=== PATIENT | female | born 1955 | race Caucasian/White ===

== ENCOUNTER 2021-02-10 09:48 | Outpatient (CLI) | payer MEDICARE, SELFPAY ==
--- NOTE | ~2021-02-10 | MR_ITS ---
EXAMINATION: MR brain/brain stem wo/w con DATE: 02/10/2021 11:08 INDICATION: Other abnormalities of gait and mobility. TECHNIQUE: Magnetic resonance imaging (MRI) of the brain and brainstem was performed without and with 20 mL MultiHance intravenous contrast. Sequences included sagittal and axial T1-weighted FSE, axial diffusion-weighted FS EPI, axial T2*-weighted GRE, axial T2-weighted FLAIR Propeller, and axial T2-we ighted Propeller. Postcontrast sequences included axial and coronal T1-weighted FSE. Apparent diffusi on coefficient (ADC) maps were created. COMPARISON: None. FINDINGS: There are scattered areas of nonspecific increased T2-weighted signal intensity in the cere bral white matter, which is within normal limits for the patient's age. There is no intracranial hemo rrhage, acute infarction, or abnormal intracranial mass lesion. The ventricles are normal in size. Th e paranasal sinuses are clear. There are likely changes of ocular lens replacement surgeries. There i s a trace left mastoid effusion. IMPRESSION: 1. Normal aging brain. Reviewed, dictated and finalized at location A. T RELATIONS AGENT IMPRESSION: 1. Normal aging brain.
== END 2021-02-10 09:49 | disposition home or self-care (01) ==
PROVIDERS: PCP Family Medicine; Visit Provider Family Medicine
DX: R26.89 Other abnormalities of gait and mobility (principal)
CPT/HCPCS: 70553; A9577

== ENCOUNTER → 2021-06-12 11:02 | Outpatient (CLI) | payer MEDICARE, SELFPAY ==
--- NOTE | ~2021-06-12 | DEXA_ITS ---
Bone Density Report Name: ANNI LEO Age: 65 Sex: Female Ethnicity: White Date of : 1955 Indication: postmenopausal; screening for osteoporosis; Referring Provider: AFRICA FLORES Study: Bone densitometry was performed. Exam Date: June 12, 2021 Accession number: [id number] Bone Density: Region BMD T-score Z-score Classification AP Spine (L1-L4) 1.620 5.2 7.0 Normal Femoral Neck (Left) 1.269 3.8 5.3 Normal Total Hip (Left) 1.292 2.9 4.1 Normal Femoral Neck (Right) 1.176 2.9 4.5 Normal Total Hip (Right) 1.165 1.8 3.1 Normal Total Hip Mean 1.229 2.4 3.6 Normal World Health Organization criteria for BMD impression classify patients as: Normal (T-score at or above -1.0), Osteopenia (T-score between -1.0 and -2.5), or Osteoporosis (T-score at or below -2.5). 10-year Fracture Risk: FRAX not reported because: All T-scores for Spine Total, Hip Total, Femoral Neck at or above -1.0 Clinical Information Provided by Patient: Patient maximum height was 62 Menopause Age: 45 No regular weight bearing exercise Does not regularly consume dairy products Drinks caffeinated beverages Onset of menses at age 15 Number of children 2 Impression: The patient has normal bone mass. Discussion: LOW RISK OF FRACTURE; BONE DENSITY IS WELL ABOVE THE MINIMUM DESIRABLE LEVEL AND ABOVE AVERAGE FOR AGE AND SEX AT ALL SKELETAL SITES TESTED. This person's bone density is above expected limits for age and sex. This is rarely clinically significant, but should be pursued if there are significant musculoskeletal complaints. The patient should follow a healthful lifestyle (good nutrition with adequate calcium and vitamin D, and appropriate weight-bearing exercise). Follow-Up: Consider repeating this study in 5 years or sooner if there is some new clinical indication. Reported by: [facility] on 06/12/2021 11:29:00 AM. Reviewed, dictated and finalized at location AMathew YAO
== END ==
PROVIDERS: PCP Family Medicine; Visit Provider Family Medicine
DX: Z78.0 Asymptomatic menopausal state (principal)
CPT/HCPCS: 77080

== ENCOUNTER 2023-03-24 10:36 | Outpatient (CLI) | payer MEDICARE, SELFPAY ==
--- NOTE | ~2023-03-24 | XR_ITS ---
EXAMINATION: XR lumbar spine min 4V DATE: 03/24/2023 11:04 INDICATION: Left-sided low back pain. TECHNIQUE: 5 views of lumbar spine were obtained. COMPARISON: None. FINDINGS: There is 22 degrees dextroscoliosis of lumbar spine. There is 9 mm anterolisthesis of L4 on L5. Vertebral body heights are normal. There is mildly decreased disc height at L1-L2 and L2-L3 and severely decreased disc height at L3-L4, L4-L5, and L5-S1. 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 IMPRESSION: 1. Severe lumbar spondylosis. 2. Lumbar dextroscoliosis. Reviewed, dictated and finalized at location E. ACT LENS FITTER
--- NOTE | ~2023-03-24 | XR_ITS ---
EXAM: XR sacroiliac joints min 3V DATE: 03/24/2023 11:04 HISTORY: M54.50 - NO KNOWN INJURY LOW LEFT SIDE BACK PAIN NONACUTE . COMPARISON: 05/20/2018. FINDINGS: Normal mineralization. No fracture or dislocation. Lumbar scoliosis and severe degenerativ e disc disease. Moderate left and mild right sacroiliac joint degenerative/arthritic change. No ankyl osis. Mild degenerative changes in the bilateral hips. Moderate degenerative change in the pubic symp hysis. IMPRESSION: Moderate left and mild right sacroiliitis. Moderate osteitis pubis. Reviewed, dictated and finalized at location K. AL FITTER
== END 2023-03-24 10:37 | disposition home or self-care (01) ==
LOC: ANHIMG 10:37
PROVIDERS: PCP Family Medicine; Visit Provider Family Medicine
DX: M47.896 Other spondylosis, lumbar region (principal); M53.3 Sacrococcygeal disorders, not elsewhere classified
CPT/HCPCS: 72110; 72202

== ENCOUNTER 2024-02-03 14:45 | Outpatient (RCR) | payer MEDICARE, SELFPAY ==
--- NOTE | 2024-01-12 14:44 | PTOPEVAL1 ---
Assessment and note entered by Domo Almanza, PT, DPT Evaluation Information Assessment Status Evaluation Diagnosis low back pain ICD-10 Condition Codes (PT) Pain in low back M54.50 Onset 1 year Subjective Information Pt reports she has intermittent back pain, it starts when she walks for any distance of time. For the last year, she states first thing in the morning she can hardly walk. She states a pain deep in her buttock that feels like it is locked states this prevents her from walking regularly. After the first few minutes of her day she feels like she has to drag her leg along. She states even sitting to watch a movie, she will get similar pains but not too the same degree. Has had radicular pains but declines any during this current flair up. Pt reports neuropathy that limits her long distance walking anyway. Pt states she wants to be able to walk further, a 10 min walk would be her goal. She reports 0/10 pain at rest, 5/10 with short distance walking, and 9/10 for the first few minutes in the morning. Reported Pain Level Pain Score 0: Self Report Assessment PT Clinical Summary Pt presents to therapy today for her initial evaluation with a diagnosis of low back pain. Today she demonstrates a leg length discrepency, significant hip weakness, decreased core strength, and decreased lumbar mobility. She ambulates with significant deviations d/t her leg length discrepency and hip weakness. Her decreased gait speed also places her at an increased risk for falls. Skilled therapy services are indicated to address the deficits noted above, to limit pain, and to improve functional mobility. Plan of Care Interventions Gait Training,Hot Pack/Cold Pack,Manual Therapy, Neuro Re-education,Patient/Caregiver Educati, Therapeutic Activities,Therapeutic Exercise PT Services Indicated Yes Treatment Frequency and 2x/wk for 8 visits Duration These treatments will address the objective and functional deficits as defined above. The patient will be advanced safely and appropriately in order for the patient to progress towards his/her prior level of function. Additional exercises will be introduced and as well as a comprehensive home exercise program upon discharge, if needed, ?to ensure carryover of functional gains achieved in the clinic. This treatment plan has been reviewed and agreement upon by the patient.
--- NOTE | 2024-01-12 14:44 | OPREHPOC ---
Outpatient Therapy Plan of Care This is a Multidisciplinary Plan of Care that may contain components documented by all disciplines (PT, OT, and ST.) PT Problem 1 PT Problem #1 Knowledge Deficit PT Goal 1 Goal / Goal Update Pt to be IND with issued HEP Target Visit 8 PT Problem 2 PT Problem #2 Pain PT Goal 1 Goal / Goal Update Pt to report pain no greater than 4/10 in the morning. Target Visit 8 PT Problem 3 PT Problem #3 Impaired Gait PT Goal 1 Goal / Goal Update Pt to improve 2 min walk distance from 340ft to 450ft. Target Visit 8 PT Goal 2 Goal / Goal Update Pt to report being able to tolerate 10 mins of walking. Target Visit 8 PT Problem 4 PT Problem #4 Impaired Strength PT Goal 1 Goal / Goal Update Pt to improve hip abduction strength to 3/5 to improve gait pattern. Target Visit 8
--- NOTE | 2024-01-26 08:03 | PCPTNOTE ---
Patient called & cancelled scheduled appointment this date due to getting an injection and being told to cancel her appointment.
--- NOTE | 2024-02-01 16:20 | PCPTNOTE ---
Patient called to cancel stating she lost track of time.
--- NOTE | 2024-02-03 15:51 | PTOPPROG ---
Assessment and note entered by Domo Almanza, PT, DPT Evaluation Information Assessment Status Progress Diagnosis low back pain ICD-10 Condition Codes (PT) Pain in low back M54.50 Onset 1 year Subjective Information Pt states feel like they are about the same. She got the heel lift but feels like things are about the same. She states her pain has improved minimally since starting therapy. She states she still has lower L sided pain that is debilitating in the morning. Pt got a shoe insert but does not feel like it is tall enough still. She states she has been sleeping with a wedge pillow under her knees and this seems to help. Assessment PT Clinical Summary Pt presents to therapy today following 6 visits of skilled therapy to treat her low back pain. She has been completing core and hip strengthening exercises with some benefits. She continues to have a leg length discrepancy causing her to ambulate with significant deviations. Her ambulation distance, quality, and speed is limited to her back pain, secondary to her leg length discrepancy. Her decreased gait speed also places her at an increased risk for falls. Continuation of skilled therapy services are indicated to address the deficits noted above, to limit pain, and to improve functional mobility. Plan of Care Interventions Gait Training,Hot Pack/Cold Pack,Manual Therapy, Neuro Re-education,Patient/Caregiver Educati, Therapeutic Activities,Therapeutic Exercise PT Services Indicated Yes Treatment Frequency and 1x/wk for 6 visits, pending MD follow up Duration These treatments will address the objective and functional deficits as defined above. The patient will be advanced safely and appropriately in order for the patient to progress towards his/her prior level of function. Additional exercises will be introduced and as well as a comprehensive home exercise program upon discharge, if needed, ?to ensure carryover of functional gains achieved in the clinic. This treatment plan has been reviewed and agreement upon by the patient.
--- NOTE | 2024-03-13 08:56 | PTOPDC ---
Assessment and note entered by Domo Almanza, PT, DPT Evaluation Information Assessment Status Discharge - Pt Not Present Diagnosis low back pain ICD-10 Condition Codes (PT) Pain in low back M54.50 Onset 1 year Subjective Information Called and spoke with pt. States she want to follow up with her provider prior to continuing therapy. Will call to schedule at a later time. Assessment PT Clinical Summary Pt completed 6 visits of skilled therapy. Will be d/c'ed at this time to discuss next POC with provider.
== END 2024-03-13 09:09 | disposition home or self-care (01) ==
LOC: ANHGOSHPT 14:45
PROVIDERS: PCP Family Medicine
DX: M54.50 Low back pain, unspecified (principal)
CPT/HCPCS: 97014; 97110; 97140; 97161; 97530; G0283